=== PATIENT | male | born 1985 | race Hispanic/Latino ===

== ENCOUNTER 2018-10-29 21:13 | Emergency (ER) | payer SELFPAY ==
[2018-10-29] MEDS ORDERED: TETANUS & DIPHTHERIA TOX,ADULT 0.5 ML VIAL ONE (21:49)
[2018-10-29] MEDS ORDERED: LIDOCAINE 1% MPF 5 ML VIAL ONE (21:50)
[2018-10-29] MEDS ORDERED: LIDOCAINE 1% 20 ML MDV ONE (22:17)
--- NOTE | 2018-10-29 22:44 | EDPHYS ---
Physician Documentation [facility] – [place], [place] Name: Juma Pryor Age: 32 yrs Sex: Male : 1985 Arrival Date: 10/29/2018 Time: 21:18 Bed 26 Private MD: ED Physician Cecil Nicholas HPI: 10/29 21:43 This 32 yrs old Male presents to ER via Ambulatory with complaints of kb Laceration To Hand. 21:43 The patient has a laceration related to: falling from a standing position, occurred kb outdoors, and there are no complicating factors. The injury was accidental. The laceration(s) is(are) located on the outer aspect of right palm. Onset: The symptoms/episode began/occurred just prior to arrival. Associated signs and symptoms: The patient has no apparent associated signs or symptoms. The patient has not experienced similar symptoms in the past. The patient has not recently seen a physician. Pt reports he was fishing and fell on the rocks. Reports cut to right hand.. Historical: - Allergies: 21:22 No Known Allergies; ed1 - Home Meds: 21:22 None [Active]; ed1 - PMHx: 21:22 None; ed1 - PSHx: 21:22 None; ed1 - Immunization history:: Adult Immunizations unknown. - Social history:: Smoking status: Patient uses tobacco products. - Ebola Screening: : Patient negative for fever greater than or equal to 101.5 degrees Fahrenheit, and additional compatible Ebola Virus Disease symptoms Patient denies exposure to infectious person Patient denies travel to an Ebola-affected area in the 21 days before illness onset No symptoms or risks identified at this time. ROS: 21:43 Constitutional: Negative for fever, chills, and weight loss, Cardiovascular: Negative kb for chest pain, palpitations, and edema, Respiratory: Negative for shortness of breath, cough, wheezing, and pleuritic chest pain, Abdomen/GI: Negative for abdominal pain, nausea, vomiting, diarrhea, and constipation, MS/Extremity: Negative for injury and deformity, Neuro: Negative for headache, weakness, numbness, tingling, and seizure. 21:43 Skin: Positive for laceration(s), of the right hand. Exam: 21:42 Constitutional: This is a well developed, well nourished patient who is awake, alert, kb and in no acute distress. Head/Face: Normocephalic, atraumatic. Chest/axilla: Normal chest wall appearance and motion. Nontender with no deformity. No lesions are appreciated. Cardiovascular: Regular rate and rhythm with a normal S1 and S2. No gallops, murmurs, or rubs. Normal PMI, no JVD. No pulse deficits. Respiratory: Lungs have equal breath sounds bilaterally, clear to auscultation and percussion. No rales, rhonchi or wheezes noted. No increased work of breathing, no retractions or nasal flaring. Abdomen/GI: Soft, non-tender, with normal bowel sounds. No distension or tympany. No guarding or rebound. No evidence of tenderness throughout. MS/ Extremity: Pulses equal, no cyanosis. Neurovascular intact. Full, normal range of motion. Neuro: Awake and alert, GCS 15, oriented to person, place, time, and situation. Cranial nerves II-XII grossly intact. Motor strength 5/5 in all extremities. Sensory grossly intact. Cerebellar exam normal. Normal gait. 22:41 Skin: injury, laceration(s), the wound is approximately 6 cm(s), of the outer aspect kb of right palm, that can be described as clean, no foreign body, irregular, jagged, with moderate bleeding. Vital Signs: 21:22 BP 149 / 96; Pulse 85; Resp 16; Temp 97.3; Pulse Ox 97% on R/A; Weight 83.91 kg; Pain ed1 6/10; 22:57 BP 128 / 91; Pulse 78; Resp 18; Temp 97.5; Pulse Ox 98% ; rv Laceration: 22:42 Wound Repair of 6cm ( 2.4in ) subcutaneous laceration to outer aspect of right palm. kb Irregularly shaped.. Distal neuro/vascular/tendon intact. Anesthesia: Wound infiltrated with 6 mls of 1% lidocaine. Wound prep: Extensive cleansing with hibiclenz by nurse, Wound irrigation with saline by nurse. Skin closed with 10 4-0 Prolene using interrupted sutures and sterile technique. Dressed with Neosporin, non-adherent dressing. Patient tolerated well. MDM: 21:24 Patient medically screened. kb 21:42 Data reviewed: vital signs, nurses notes. Data interpreted: Pulse oximetry: on room air kb is 97 %. Interpretation: normal. Counseling: I had a detailed discussion with the patient and/or guardian regarding: the historical points, exam findings, and any diagnostic results supporting the discharge/admit diagnosis, the need for outpatient follow up, a family practitioner, to return to the emergency department if symptoms worsen or persist or if there are any questions or concerns that arise at home. 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 Exp: rv 08/01/2020. Lot #: [id number]. } Route: IM; Site: left deltoid; 22:54 Follow up: Response: Medication administered at discharge. rv 22:54 Drug: [place] (7.5 mg-325 mg) 1 tabs Route: PO; rv 22:54 Follow up: Response: Medication administered at discharge. rv 22:54 Drug: Doxycycline 100 mg Route: PO; rv 22:54 Follow up: Response: Medication administered at discharge. rv Disposition: 23:57 Co-signature as Attending Physician, Cecil Nicholas MD. Disposition: 10/29/18 22:43 Discharged to Home. Impression: Laceration without foreign body of right hand. - Condition is Stable. - Discharge Instructions: Laceration Care, Adult, [id number]. - Prescriptions for Doxycycline Hyclate 100 mg Oral Tablet - take 1 tablet by ORAL route every 12 hours; 20 tablet. - Medication Reconciliation Form, Thank You Letter, Antibiotic Education, Prescription Opioid Use, Work release form form. - Follow up: Emergency Department; When: As needed; Reason: Worsening of condition. Follow up: Private Physician; When: 2 - 3 days; Reason: Recheck today's complaints, Continuance of care, Re-evaluation by your physician. Signatures: Jocelyn Brown FNP-C FNP-Ckb Riggs, Erika, RN RN ed1 Cecil Nicholas MD MD gs Nicolas, Abel, RN RN rv Corrections: (The following items were deleted from the chart) 22:59 22:43 10/29/2018 22:43 Discharged to Home. Impression: Laceration without foreign body rv of right hand. Condition is Stable. Forms are Medication Reconciliation Form, Thank You Letter, Antibiotic Education, Prescription Opioid Use. Follow up: Emergency Department; When: As needed; Reason: Worsening of condition. Follow up: Private Physician; When: 2 - 3 days; Reason: Recheck today's complaints, Continuance of care, Re-evaluation by your physician. kb
--- NOTE | 2018-10-29 22:44 | ER ---
Nurse's Notes [facility] Name: Juma Pryor Age: 32 yrs Sex: Male : 1985 Arrival Date: 10/29/2018 Time: 21:18 Bed 26 Private MD: Diagnosis: Laceration without foreign body of right hand Presentation: 10/29 21:21 Presenting complaint: Patient states: I fell on a rock while fishing and cut my hand. ed1 Transition of care: patient was not received from another setting of care. Complicating Factors: The patient fell landing on an outstretched hand. Onset of symptoms was October 29, 2018. Risk Assessment: Do you want to hurt yourself or someone else? Patient reports no desire to harm self or others. Initial Sepsis Screen: Does the patient meet any 2 criteria? No. Patient's initial sepsis screen is negative. Does the patient have a suspected source of infection? No. Patient's initial sepsis screen is negative. Care prior to arrival: None. 21:21 Method Of Arrival: Ambulatory ed1 21:21 Acuity: ELISEO 3 ed1 Triage Assessment: 21:22 General: Appears in no apparent distress. Behavior is calm, cooperative. Pain: ed1 Complains of pain in right hand. Injury Description: Laceration sustained to right hand. Historical: - Allergies: 21:22 No Known Allergies; ed1 - Home Meds: 21:22 None [Active]; ed1 - PMHx: 21:22 None; ed1 - PSHx: 21:22 None; ed1 - Immunization history:: Adult Immunizations unknown. - Social history:: Smoking status: Patient uses tobacco products. - Ebola Screening: : Patient negative for fever greater than or equal to 101.5 degrees Fahrenheit, and additional compatible Ebola Virus Disease symptoms Patient denies exposure to infectious person Patient denies travel to an Ebola-affected area in the 21 days before illness onset No symptoms or risks identified at this time. Screenin:44 Abuse screen: Denies threats or abuse. Denies injuries from another. Nutritional rv screening: No deficits noted. Tuberculosis screening: No symptoms or risk factors identified. Fall Risk None identified. Assessment: 21:40 General: Appears in no apparent distress. comfortable, Behavior is calm, cooperative. rv Pain: Complains of pain in right hand. Neuro: Level of Consciousness is awake, alert, obeys commands, Oriented to person, place, time, situation. Cardiovascular: Patient's skin is warm and dry. Respiratory: Airway is patent. GI: No signs and/or symptoms were reported involving the gastrointestinal system. : No signs and/or symptoms were reported regarding the genitourinary system. EENT: No signs and/or symptoms were reported regarding the EENT system. Derm: Skin is intact. Musculoskeletal: Circulation, motion, and sensation intact. Range of motion: intact in all extremities. Injury Description: Laceration sustained to right hand is jagged, 2.6 to 7.5 cm long, bleeding moderately. Vital Signs: 21:22 BP 149 / 96; Pulse 85; Resp 16; Temp 97.3; Pulse Ox 97% on R/A; Weight 83.91 kg; Pain ed1 11/11; 22:57 BP 128 / 91; Pulse 78; Resp 18; Temp 97.5; Pulse Ox 98% ; rv ED Course: 21:18 Patient arrived in ED. es 21:22 Triage completed. ed1 21:22 Arm band placed on. ed1 21:24 Jocelyn Brown FNP-C is PHCP. kb 21:24 Cecil Nicholas MD is Attending Physician. kb 21:25 Abel Valenzuela RN is Primary Nurse. rv 21:43 Wound care: to laceration located on right hand was cleaned with Hibiclens, irrigated rv with normal saline, dressed with 4X4s, cling, Patient tolerated well. 21:44 Patient has correct armband on for positive identification. Bed in low position. Call rv light in reach. Side rails up X 1. Adult w/ patient. Pulse ox on. NIBP on. 22:58 Assist provider with laceration repair on right hand that was between 2.6 to 7.5 cm rv using sutures. Set up tray. Performed by Jocelyn JOHNSON Dressed with 4X4s, Jb, Patient tolerated well. Patient did not have IV access during this emergency room visit. 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 Exp: rv 08/01/2020. Lot #: [id number]. } Route: IM; Site: left deltoid; 22:54 Follow up: Response: Medication administered at discharge. rv 22:54 Drug: [place] (7.5 mg-325 mg) 1 tabs Route: PO; rv 22:54 Follow up: Response: Medication administered at discharge. rv 22:54 Drug: Doxycycline 100 mg Route: PO; rv 22:54 Follow up: Response: Medication administered at discharge. rv Outcome: 22:43 Discharge ordered by MD. kb 22:59 Discharged to home ambulatory. rv 22:59 Condition: good 22:59 Discharge instructions given to patient, Instructed on discharge instructions, follow up and referral plans. medication usage, wound care, Demonstrated understanding of instructions, follow-up care, medications, wound care, Prescriptions given X 1. 22:59 Patient left the ED. rv Signatures: Jocelyn Brown, MORTGAGE COLLECTOR-C MORTGAGE COLLECTOR-Carolyne Fay Erika, RN RN ed1 Abel Valenzuela RN RN rv
[2018-10-29] MEDS ORDERED: HYDROCODONE/APAP 7.5/325 MG TAB ONE (23:05)
[2018-10-29] MEDS ORDERED: DOXYCYCLINE 100 MG CAP PO ONE (23:05)
== END 2018-10-29 22:59 | disposition home or self-care (01) ==
LOC: ER 21:13
PROC: 0JQJ0ZZ Repair Right Hand Subcutaneous Tissue and Fascia, Open Approach (ICD-10-PCS; principal; 2018-10-29)
DX: S61.411A Laceration without foreign body of right hand, initial encounter (principal); W18.30XA Fall on same level, unspecified, initial encounter; Y93.89 Activity, other specified; Z72.0 Tobacco use; Z23 Encounter for immunization
CPT/HCPCS: 90471; 90714; 99284